=== PATIENT | female | born 1970 | race African-American/Black ===

== ENCOUNTER 2022-08-09 18:30 | Emergency (ER) | payer MEDICAID ==
[~2022-08-09] VITALS: Ht 170.2 cm; Wt 76.0 kg
[2022-08-09] MEDS ORDERED: CLONIDINE0.1 MG PO (18:59)
[2022-08-09] MEDS ORDERED: LOSARTAN POTASS50 MG PO (18:59)
[2022-08-09] MEDS ORDERED: GABAPENTIN300 M2 PO (19:01)
[2022-08-09] MEDS ORDERED: TOPIRAMATE100 MG PO (19:02)
[2022-08-09] MEDS ORDERED: GABAPENTIN100 MG PO (19:02)
[2022-08-09 21:33] LABS: BASO% 0.5 % (0-3); HEMOGLOBIN 14.2 g/dl (12.0-16.0); IMMATURE GRANULOCYTES 0.1 % (0.0-5.0); LYMPH% 31.9 % (15-41); MEAN CELL VOLUME 86.5 fL CALC (80.0-100.0); MEAN CORPUSCULAR HGB 28.6 pG CALC (26.0-32.0); MONO% 7.1 % (2-13); NEUT# 4.77 thou/uL (2.00-7.15); NEUT% 59.4 % (42-76); RED BLOOD COUNT 4.97 mill/uL (4.20-5.60); RED CELL DISTRI WIDTH 14.6 % (11.5-15.5)
[2022-08-09 21:53] LABS: ALBUMIN 4.5 g/dL (3.2-5.0); ALKALINE PHOSPHATASE 78 u/l (38-126); ANION GAP 11 (6-22 (CALC)); BILIRUBIN, TOTAL 0.4 mg/dL (0.0-1.4); BUN 11 mg/dL (7-17); BUN/CREATININE RATIO 14 (12-20 (CALC)); CARBON DIOXIDE 23 mmol/l (22-30); CHLORIDE 109 mmol/l (95-108); CREATININE 0.7 mg/dL (0.5-1.0); GFR FOR AFR.AMER. > 60 ML/MIN (>=60 (CALC)); GFR OTHER RACES > 60 ML/MIN (>=60 (CALC)); POTASSIUM 3.9 mmol/l (3.5-5.1); SGOT/AST 25 u/l (14-36); SODIUM 139 mmol/l (137-146); TOTAL PROTEIN 8.5 g/dL (6.3-8.2)
[2022-08-09 23:52] VITALS: BP 165/80
== END 2022-08-09 23:52 | disposition home or self-care (01) ==
LOC: ED 18:30
PROVIDERS: Emergency Medicine
DX: I10 Essential (primary) hypertension (principal)

== ENCOUNTER 2022-10-01 09:27 | Emergency (ER) | payer MEDICAID ==
[~2022-10-01] VITALS: Ht 170.2 cm; Wt 85.0 kg
[2022-10-01] VITALS (11 sets, daily range): BP systolic 164–204; BP diastolic 82–104
[~2022-10-01 09:27] MED LIST: CLONIDINE0.1 MG PO; GABAPENTIN100 MG PO; GABAPENTIN300 M2 PO; LOSARTAN POTASS50 MG PO; TOPIRAMATE100 MG PO
[2022-10-01 10:17] LABS: BASO% 0.6 % (0-3); HEMATOCRIT 45.7 % (37.0-47.0); HEMOGLOBIN 14.7 g/dl (12.0-16.0); IMMATURE GRANULOCYTES 0.1 % (0.0-5.0); LYMPH% 24.4 % (15-41); MEAN CELL VOLUME 85.9 fL CALC (80.0-100.0); MEAN CORPUSCULAR HGB 27.6 pG CALC (26.0-32.0); MEAN CORPUSCULAR HGB CONC 32.2 g/dL CAL (32.0-36.0); MONO% 8.1 % (2-13); NEUT# 5.79 thou/uL (2.00-7.15); NEUT% 65.8 % (42-76); RED BLOOD COUNT 5.32 mill/uL (4.20-5.60); RED CELL DISTRI WIDTH 14.5 % (11.5-15.5)
[2022-10-01 10:32] LABS: ALBUMIN 4.9 g/dL (3.2-5.0); ALKALINE PHOSPHATASE 80 u/l (38-126); ANION GAP 12 (6-22 (CALC)); BILIRUBIN, TOTAL 0.5 mg/dL (0.02-1.3); BUN 9 mg/dL (7-17); BUN/CREATININE RATIO 12 (12-20 (CALC)); CARBON DIOXIDE 27 mmol/l (22-30); CHLORIDE 106 mmol/l (95-108); CREATININE 0.7 mg/dL (0.5-1.0); GFR FOR AFR.AMER. > 60 ML/MIN (>=60 (CALC)); GFR OTHER RACES > 60 ML/MIN (>=60 (CALC)); POTASSIUM 3.8 mmol/l (3.5-5.1); SGOT/AST 23 u/l (14-36); SODIUM 142 mmol/l (137-146); TOTAL PROTEIN 9.4 g/dL (6.3-8.2)
[2022-10-01] MEDS ORDERED: AMLODIPINE BESY10 MG PO (10:47)
== END 2022-10-01 12:05 | disposition home or self-care (01) ==
LOC: ED 09:27
PROVIDERS: Family Medicine
DX: I10 Essential (primary) hypertension (principal)